=== PATIENT | female | born 1995 | race Caucasian/White ===

== ENCOUNTER 2017-01-13 07:02 | Emergency (ER) | payer MEDICAID ==
[~2017-01-13] VITALS: Ht 154.9 cm; Wt 54.4 kg
[~2017-01-13 07:02] MED LIST: MONT4CHW9
[2017-01-13] MEDS ORDERED: IPRATROPIUM BROM 0.5 MG/2.5ML INH SOL NEB ONE (08:15)
[2017-01-13] MEDS ORDERED: ALBUTEROL SULF 2.5 MG/0.5ML(0.5%) NEB SOLN NEB ONE (08:15)
[2017-01-13] MEDS ORDERED: ALBUTEROL SULF 2.5 MG/0.5ML(0.5%) NEB SOLN ONE (08:17)
[2017-01-13] MEDS ORDERED: IPRATROPIUM BROM 0.5 MG/2.5ML INH SOL ONE (08:18)
[2017-01-13 08:50] VITALS: BP 111/68
== END 2017-01-13 08:55 | disposition home or self-care (01) ==
LOC: ER 07:02
DX: J45.901 Unspecified asthma with (acute) exacerbation (principal); J02.9 Acute pharyngitis, unspecified
CPT/HCPCS: 94640